=== PATIENT | male | born 1960 | race Caucasian/White ===

== ENCOUNTER 2023-07-01 04:19 | Outpatient (CLI) | payer BC, SELFPAY | END 2023-07-01 04:20 | disposition home or self-care (01) | LOC: AMB 07-18 00:34 | PROVIDERS: Visit Provider Family Medicine | DX: K92.0 Hematemesis (principal); I95.9 Hypotension, unspecified; D64.9 Anemia, unspecified | CPT/HCPCS: A0425; A0434 ==